=== PATIENT | male | born 1980 | race American Indian/Alaskan Native ===

== ENCOUNTER 2016-12-15 15:41 | Emergency (ER) | payer SELFPAY ==
[2016-12-15 16:40] LABS: Urine Drugs of Abuse Note Disclamer
--- NOTE | 2016-12-15 16:42 | Cat Scan Report ---
CT neck without contrast: Neck pain, dizziness. Transverse images are obtained from the skull base through T3. The vertebral height, alignment, and interspaces are preserved. The bones are well-mineralized. No evidence of foraminal or spinal stenosis. No significant degenerative apophyseal changes. No prevertebral swelling. Impression: Normal exam.
--- NOTE | 2016-12-15 16:43 | Cat Scan Report ---
CRANIAL CT SCAN: Headache, dizziness. Serial contiguous axial images were obtained through the cranium. Intravenous contrast material was not administered. The ventricles are normal in size and appearance. There is no mass effect or midline shift. No areas of abnormally increased or decreased attenuation are seen. No mass lesion is seen. The mastoid air cells and visualized portions of the sinuses are normal. IMPRESSION: Cranial CT scan within normal limits.
[2016-12-15 16:57] LABS: Bilirubin,Urine NEG (Negative); Blood,Urine NEG (Negative); Ketones,Urine NEG (Negative); Leukocyte Esterase,Urine NEG (Negative); Mucus,Urine FEW /HPF; Nitrite,Urine NEG (Negative); Protein,Urine <15 mg/dL mg/dL (Negative); RBC,Urine < 1.0 /HPF (0.0-6.0); Urobilinogen,Urine < 2.0 mg/dL (<2.0)
[2016-12-15 17:00] LABS: Basophils % (Auto) 0.3 % (0.0-1.8); Eosinophils % (Auto) 0.5 % (0.0-4.3); Hematocrit 43.1 % (35.5-45.6); Mean Corpuscular HGB Conc 32 % (32-34); Mean Corpuscular Hemoglobin 27 pg (28-32); Mean Corpuscular Volume 84 fl (84-94); Platelet Count 184 K/mm3 (140-440); Red Blood Count 5.11 M/mm3 (3.65-5.03); White Blood Count 9.7 K/mm3 (4.5-11.0)
[2016-12-15 17:01] LABS: Alanine Aminotransferase 10 units/L (7-56); Albumin 4.3 g/dL (3.9-5); Albumin/Globulin Ratio 1.4 %; Alkaline Phosphatase 71 units/L (35-129); Anion Gap 13 mmol/L; BUN/Creatinine Ratio 12.72; Blood Urea Nitrogen 14 mg/dL (9-20); Calcium 8.9 mg/dL (8.4-10.2); Carbon Dioxide 30 mmol/L (22-30); Chloride 103.4 mmol/L (98-107); Glucose 80 mg/dL (75-100); Potassium 4.1 mmol/L (3.6-5.0); Sodium 142 mmol/L (137-145); Total Protein 7.3 g/dL (6.3-8.2)
[2016-12-15 21:06] VITALS: BP 123/76
--- NOTE | 2016-12-15 21:10 | Emergency Department Report ---
ED Syncope HPI - General Chief Complaint: Seizure Stated Complaint: POSS SZ Time Seen by Provider: 12/15/16 20:44 Source: patient - History of Present Illness Initial Comments: 36-year-old male here with complaint of feeling lightheaded and dizzy followed by questionable syncopal versus seizure episode. 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 States he's had similar episode in the past when he was a child. Denies chest pain nausea vomiting. No postictal period Timing/Prior Episodes: no prior history Precipitating Factors: Positive: none, lightheadedness Context: standing Loss of Consciousness: no loss of consciousness Current Symptoms: back to normal - Related Data Allergies/Adverse Reactions: Allergies No Known Allergies Allergy (Unverified 12/15/16 15:47) Home Medications: Ambulatory Orders No Known Home Medications [No Reported Home Medications] 12/15/16 ED Review of Systems ROS: Stated complaint: POSS SZ Other details as noted in HPI Comment: All other systems reviewed and negative Constitutional: denies: chills, fever Eyes: denies: eye pain, eye discharge, vision change ENT: denies: ear pain, throat pain Respiratory: denies: cough, shortness of breath, wheezing Cardiovascular: denies: chest pain, palpitations Endocrine: no symptoms reported Gastrointestinal: denies: abdominal pain, nausea, diarrhea Genitourinary: denies: urgency, dysuria Musculoskeletal: denies: back pain, joint swelling, arthralgia Skin: denies: rash, lesions Neurological: denies: headache, weakness, paresthesias Psychiatric: denies: anxiety, depression Hematological/Lymphatic: denies: easy bleeding, easy bruising ED Past Medical Hx - Past Medical History Previous Medical History?: Yes Hx Seizures: Yes (CHILD ; NOT TAKING MEDS) - Surgical History Past Surgical History?: No - Social History Smoking Status: Current Every Day Smoker Substance Use Type: Alcohol, Marijuana - Medications Home Medications: Home Medications Medication Instructions Recorded Confirmed Last Taken Type No Known Home Medications [No 12/15/16 12/15/16 Unknown History Reported Home Medications] ED Physical Exam - General Limitations: No Limitations General appearance: alert, in no apparent distress - Head Head exam: Present: atraumatic, normocephalic - Eye Eye exam: Present: normal appearance - ENT ENT exam: Present: mucous membranes moist - Neck Neck exam: Present: normal inspection. Absent: lymphadenopathy - Respiratory Respiratory exam: Present: normal lung sounds bilaterally. Absent: respiratory distress - Cardiovascular Cardiovascular Exam: Present: regular rate, normal rhythm. Absent: systolic murmur, diastolic murmur, rubs, gallop - GI/Abdominal GI/Abdominal exam: Present: soft, normal bowel sounds - Rectal Rectal exam: Present: deferred - Extremities Exam Extremities exam: Present: normal inspection - Back Exam Back exam: Present: normal inspection - Neurological Exam Neurological exam: Present: alert, oriented X3 - Psychiatric Psychiatric exam: Present: normal affect, normal mood - Skin Skin exam: Present: warm, dry, intact, normal color. Absent: rash ED Course Vital Signs 12/15/16 12/15/16 12/15/16 15:50 20:07 20:40 Temperature 98.0 F 98.1 F Pulse Rate 59 L 58 L Respiratory 17 18 18 Rate Blood Pressure 109/72 113/77 Blood Pressure [Right] O2 Sat by Pulse 99 100 100 Oximetry 12/15/16 21:05 Temperature 98.4 F Pulse Rate 51 L Respiratory 18 Rate Blood Pressure Blood Pressure 123/76 [Right] O2 Sat by Pulse 100 Oximetry ED Medical Decision Making - Lab Data Result diagrams: 12/15/16 16:30 12/15/16 16:30 Laboratory Results - last 24 hr 12/15/16 12/15/16 12/15/16 16:30 16:30 16:30 WBC 9.7 RBC 5.11 H Hgb 14.0 Hct 43.1 MCV 84 MCH 27 L MCHC 32 RDW 14.0 Plt Count 184 Lymph % (Auto) 25.7 Wirt % (Auto) 6.2 Eos % (Auto) 0.5 Baso % (Auto) 0.3 Lymph # 2.5 Wirt # 0.6 Eos # 0.0 Baso # 0.0 Seg Neutrophils % 67.3 Seg Neutrophils # 6.5 Sodium 142 Potassium 4.1 Chloride 103.4 Carbon Dioxide 30 Anion Gap 13 BUN 14 Creatinine 1.1 Estimated GFR > 60 BUN/Creatinine Ratio 12.72 Glucose 80 Calcium 8.9 Total Bilirubin 0.30 AST 28 ALT 10 Alkaline Phosphatase 71 C-Reactive Protein 0.00 Total Protein 7.3 Albumin 4.3 Albumin/Globulin Ratio 1.4 Urine Color Urine Turbidity Urine pH Ur Specific [place] Urine Protein Urine Glucose (UA) Urine Ketones Urine Blood Urine Nitrite Urine Bilirubin Urine Urobilinogen Ur Leukocyte Esterase Urine WBC (Auto) Urine RBC (Auto) Urine Mucus Urine Opiates Screen Urine Methadone Screen Ur Barbiturates Screen Ur Phencyclidine Scrn Ur Amphetamines Screen U Benzodiazepines Scrn Urine Cocaine Screen U Marijuana (THC) Screen Drugs of Abuse Note Plasma/Serum Alcohol 12/15/16 12/15/16 12/15/16 16:30 16:33 16:33 WBC RBC Hgb Hct MCV MCH MCHC RDW Plt Count Lymph % (Auto) Wirt % (Auto) Eos % (Auto) Baso % (Auto) Lymph # Wirt # Eos # Baso # Seg Neutrophils % Seg Neutrophils # Sodium Potassium Chloride Carbon Dioxide Anion Gap BUN Creatinine Estimated GFR BUN/Creatinine Ratio Glucose Calcium Total Bilirubin AST ALT Alkaline Phosphatase C-Reactive Protein Total Protein Albumin Albumin/Globulin Ratio Urine Color Yellow Urine Turbidity Clear Urine pH 5.0 Ur Specific [place] 1.023 Urine Protein <15 mg/dl Urine Glucose (UA) Neg Urine Ketones Neg Urine Blood Neg Urine Nitrite Neg Urine Bilirubin Neg Urine Urobilinogen < 2.0 Ur Leukocyte Esterase Neg Urine WBC (Auto) 2.0 Urine RBC (Auto) < 1.0 Urine Mucus Few Urine Opiates Screen Presumptive negative Urine Methadone Screen Presumptive negative Ur Barbiturates Screen Presumptive negative Ur Phencyclidine Scrn Presumptive negative Ur Amphetamines Screen Presumptive negative U Benzodiazepines Scrn Presumptive negative Urine Cocaine Screen Presumptive negative U Marijuana (THC) Screen Presumptive positive Drugs of Abuse Note Disclamer Plasma/Serum Alcohol < 0.01 - EKG Data -: EKG Interpreted by Ma EKG shows normal: sinus rhythm - EKG Data 12/15/16 21:29 Sinus bradycardia rate of 46 normal axis normal intervals no ST-T wave changes - Medical Decision Making 36-year-old male here with complaint of likely syncopal episode. Currently back at baseline. Denies any other symptoms. Normal labs normal head CT. I do not suspect this was a seizure. Plan have the patient follow up with his primary care doctor. He is a low risk syncope. Plan to discharge. EKG shows sinus bradycardia. This is a young healthy male I do not suspect this is an issue. Plan discharge patient home. Portions of this chart were dictated with dictation software. There may be dictation errors contained within this note. Critical care attestation.: If time is entered above; I have spent that time in minutes in the direct care of this critically ill patient, excluding procedure time. ED Disposition Clinical Impression: Syncope Disposition: DC-01 TO HOME OR SELFCARE Is pt being admited?: No Condition: Stable Instructions: Syncope (ED) Additional Instructions: Please follow-up with your primary care physician Referrals: PRIMARY CARE, [Primary Care Provider] - 3-5 Days
== END 2016-12-15 21:36 | disposition home or self-care (01) ==
LOC: ED 15:41
DX: R42 Dizziness and giddiness (principal); F17.210 Nicotine dependence, cigarettes, uncomplicated; F12.10 Cannabis abuse, uncomplicated
CPT/HCPCS: 36415; 70450; 72125; 80053; 80307; 81001; 84146; 85025; 86140; 93005; 93010; 99284; G0480; 80320

== ENCOUNTER 2016-12-20 08:33 | Emergency (ER) | payer OTHER ==
[2016-12-20 11:41] VITALS: BP 115/80
--- NOTE | 2017-01-09 15:04 | ED Elopement Review ---
ED Pt Elopement review - Call Back decision Pt Call Back Decision: No action required
== END 2016-12-20 15:45 | disposition left against medical advice (07) ==
LOC: ED 08:33
DX: R55 Syncope and collapse (principal); Z53.21 Procedure and treatment not carried out due to patient leaving prior to being seen by health care provider
CPT/HCPCS: 93005; 93010

== ENCOUNTER 2017-05-03 05:44 | Emergency (ER) | payer OTHER ==
[2017-05-03 05:49] VITALS: BP 121/73
[2017-05-03] MEDS ORDERED: ZOFRAN ODT PO ONE (06:20)
[2017-05-03] MEDS ORDERED: ZOFRAN ODT ONE (06:24)
[2017-05-03 06:29] LABS: Basophils % (Auto) 0.3 % (0.0-1.8); Hematocrit 49.7 % (35.5-45.6); Hemoglobin 16.2 gm/dl (11.8-15.2); Mean Corpuscular HGB Conc 33 % (32-34); Mean Corpuscular Hemoglobin 28 pg (28-32); Mean Corpuscular Volume 85 fl (84-94); Platelet Count 185 K/mm3 (140-440); Red Blood Count 5.84 M/mm3 (3.65-5.03); Red Cell Distribution Width 13.8 % (13.2-15.2); White Blood Count 9.3 K/mm3 (4.5-11.0)
[2017-05-03 06:48] LABS: Anion Gap 19 mmol/L; BUN/Creatinine Ratio 17; Blood Urea Nitrogen 17 mg/dL (9-20); Calcium 9.3 mg/dL (8.4-10.2); Carbon Dioxide 25 mmol/L (22-30); Chloride 100.3 mmol/L (98-107); Glucose 119 mg/dL (75-100); Potassium 4.2 mmol/L (3.6-5.0); Sodium 140 mmol/L (137-145)
[2017-05-03 07:37] LABS: Bilirubin,Urine NEG (Negative); Blood,Urine NEG (Negative); Ketones,Urine NEG (Negative); Leukocyte Esterase,Urine NEG (Negative); Mucus,Urine 1+ /HPF; Nitrite,Urine NEG (Negative); Protein,Urine <15 mg/dL mg/dL (Negative)
== END 2017-05-03 14:46 | disposition left against medical advice (07) ==
LOC: ED 05:44
DX: R11.2 Nausea with vomiting, unspecified (principal); R19.7 Diarrhea, unspecified; Z53.21 Procedure and treatment not carried out due to patient leaving prior to being seen by health care provider
CPT/HCPCS: 36415; 80048; 81001; 85025; Q0162